=== PATIENT | female | born 1970 | race Asian ===

== ENCOUNTER 2018-09-16 18:47 | Emergency (ER) | payer OTHER ==
[~2018-09-16] VITALS: Ht 162.6 cm; Wt 61.2 kg
[2018-09-16 19:26] LABS: PLATELET COUNT 313 K/uL (152-353)
[2018-09-16 19:36] LABS: POTASSIUM 4.3 mmol/L (3.6-5.2)
[2018-09-16 20:41] VITALS: BP 152/89; TEMP 98.5
[2018-09-16] MEDS ORDERED: HYDR25CA25 PO (22:29)
[2018-09-16] MEDS ORDERED: [UNRECOGNIZED DRUG - CODE] PO (22:30)
[2018-09-16] MEDS ORDERED: ONDA4TAB3 PO (22:31)
[2018-09-16] MEDS ORDERED: IRON325 MG PO (22:31)
[2018-09-16] MEDS ORDERED: INSUINJP SC (22:32)
[2018-09-16] MEDS ORDERED: CELEXA20 MG PO (22:34)
[2018-09-16] MEDS ORDERED: NOVOLIN R100 UNIT/1 SC (22:34)
[2018-09-16] MEDS ORDERED: MAGNESIUM400 M1 PO (22:35)
[2018-09-16] MEDS ORDERED: METF500T PO (22:35)
[2018-09-16] MEDS ORDERED: QUETIAPINE FUMA50 MG PO (22:36)
[2018-09-16] MEDS ORDERED: TRAZ100T PO (22:36)
[2018-09-16] MEDS ORDERED: AMBIEN5 MG PO (22:37)
[2018-09-16] MEDS ORDERED: MULTIVITAMIN AD1 TAB PO (22:37)
== END 2018-09-16 21:12 | disposition other institution (70) ==
LOC: ED 18:47
DX: R44.2 Other hallucinations (principal); F20.9 Schizophrenia, unspecified; E11.65 Type 2 diabetes mellitus with hyperglycemia; Z04.6 Encounter for general psychiatric examination, requested by authority
CPT/HCPCS: 80053; 81000; 85027; 93005; 99285; J1815

== ENCOUNTER 2018-11-05 19:11 | Emergency (ER) | payer OTHER ==
[~2018-11-05] VITALS: Ht 157.5 cm; Wt 63.5 kg
[~2018-11-05 19:11] MED LIST: AMBIEN5 MG PO; CELEXA20 MG PO; DIVALPROEX500 MG PO; Flonase Nasal Inhale NAS; HYDR25CA25 PO; INSUINJP SC; IRON325 MG PO; LEVO0.1T6 PO; MAGNESIUM400 M1 PO; METF500T PO; MULTIVITAMIN AD1 TAB PO; NOVOLIN R100 UNIT/1 SC; ONDA4TAB3 PO; PRAZOSIN HCL1 MG PO; QUETIAPINE FUMA50 MG PO; ROBITUSSIN DM SYRUP PO; TOPIRAMATE25 MG PO; TRAZ100T PO; WELLBUTRIN SR 100MG PO; ZIPR20CA PO; [UNRECOGNIZED DRUG - CODE] PO
[2018-11-05 19:29] LABS: PLATELET COUNT 170 K/uL (152-353)
[2018-11-05 19:38] LABS: POTASSIUM 4.5 mmol/L (3.6-5.2)
[2018-11-05] MEDS ORDERED: ZIPR80CA PO (20:36)
[2018-11-05] MEDS ORDERED: TRAMADOL HYDROC50 MG PO (20:41)
[2018-11-05 22:23] VITALS: BP 147/98
== END 2018-11-05 22:23 | disposition other institution (70) ==
LOC: ED 19:11
PROVIDERS: Emergency Medicine
DX: F20.89 Other schizophrenia (principal); I10 Essential (primary) hypertension; F17.290 Nicotine dependence, other tobacco product, uncomplicated; Z04.6 Encounter for general psychiatric examination, requested by authority
CPT/HCPCS: 36415; 80053; 81000; 85027; 93005; 96372; 99285; J1200; J1630; J2060